=== PATIENT | female | born 1965 | race Caucasian/White ===

== ENCOUNTER → 2016-07-05 | Outpatient (REF) ==
[2016-07-05 16:45] LABS: THYROID STIMULATING HORMONE 2.52 uIU/mL (0.465-4.680)
== END ==
LOC: ZLAB.WCH 15:59
PROVIDERS: Internal Medicine Endocrinology, Diabetes & Metabolism
DX: Z01.89 Encounter for other specified special examinations (principal)

== ENCOUNTER → 2016-08-30 | Outpatient (CLI) | payer OTHER | LOC: MC.RAD 14:51 | DX: Z12.31 Encounter for screening mammogram for malignant neoplasm of breast (principal) ==

== ENCOUNTER → 2016-09-03 | Outpatient (REF) ==
[2016-09-03 20:06] LABS: THYROID STIMULATING HORMONE 1.1 uIU/mL (0.465-4.680)
== END ==
LOC: ZLAB.WCH 19:07
PROVIDERS: Internal Medicine Endocrinology, Diabetes & Metabolism
DX: Z01.89 Encounter for other specified special examinations (principal)

== ENCOUNTER → 2016-12-03 | Outpatient (REF) | LOC: ZLAB.WCH 18:08 | DX: Z01.89 Encounter for other specified special examinations (principal) ==

== ENCOUNTER → 2018-06-23 | Outpatient (CLI) | payer OTHER | LOC: MC.RAD 15:52 | DX: Z12.31 Encounter for screening mammogram for malignant neoplasm of breast (principal) ==

== ENCOUNTER → 2018-07-16 | Outpatient (REF) ==
[2018-07-16 17:29] LABS: TOTAL IRON BINDING CAPACITY 336 ug/dL (265-497)
[2018-07-16 17:54] LABS: FERRITIN 89 ng/mL (11-264)
[2018-07-16 18:28] LABS: IRON,SERUM 79 ug/dL (35-150)
== END ==
LOC: ZLAB.WCH 16:02
PROVIDERS: Internal Medicine
DX: Z01.89 Encounter for other specified special examinations (principal)

== ENCOUNTER → 2018-11-11 | Outpatient (CLI) | payer OTHER | LOC: MHCPAIN 14:55 | DX: G89.29 Other chronic pain (principal); M47.812 Spondylosis without myelopathy or radiculopathy, cervical region; R51 Headache; M54.81 Occipital neuralgia | CPT/HCPCS: G0463 ==

== ENCOUNTER → 2018-12-10 | Outpatient (CLI) | payer OTHER | LOC: MHCPAIN 12:55 | DX: M54.12 Radiculopathy, cervical region (principal); M47.812 Spondylosis without myelopathy or radiculopathy, cervical region ==

== ENCOUNTER → 2018-12-14 | Outpatient (CLI) | payer OTHER | LOC: MHCPAIN 09:15 | DX: G89.29 Other chronic pain (principal); R51 Headache; M47.812 Spondylosis without myelopathy or radiculopathy, cervical region | CPT/HCPCS: G0463 ==

== ENCOUNTER → 2018-12-24 | Outpatient (CLI) | payer OTHER | LOC: MHCPAIN 11:38 | DX: M54.12 Radiculopathy, cervical region (principal); M47.812 Spondylosis without myelopathy or radiculopathy, cervical region; R51 Headache ==

== ENCOUNTER → 2018-12-30 | Outpatient (CLI) | payer OTHER | LOC: MHCPAIN 08:50 | DX: G89.29 Other chronic pain (principal); M54.81 Occipital neuralgia; R51 Headache; M47.812 Spondylosis without myelopathy or radiculopathy, cervical region | CPT/HCPCS: G0463 ==

== ENCOUNTER → 2019-01-21 | Outpatient (CLI) | payer OTHER | LOC: MHCPAIN 14:40 | DX: M54.12 Radiculopathy, cervical region (principal); R51 Headache | CPT/HCPCS: J2250; J2405; J3010; J7030 ==

== ENCOUNTER → 2019-02-04 | Outpatient (CLI) | payer OTHER | LOC: COL.RAD 08:15 | DX: H91.8X1 Other specified hearing loss, right ear (principal) | CPT/HCPCS: A9585 ==

== ENCOUNTER → 2019-03-30 | Outpatient (CLI) | payer OTHER | LOC: MHCPAIN 15:03 | DX: M54.81 Occipital neuralgia (principal); R51 Headache | CPT/HCPCS: G0463 ==

== ENCOUNTER → 2020-09-04 | Outpatient (CLI) | payer OTHER | LOC: COL.RAD 14:58 | DX: R06.00 Dyspnea, unspecified (principal) ==

== ENCOUNTER → 2020-09-05 | Outpatient (CLI) | payer OTHER | LOC: COL.RAD 14:16 | DX: J01.90 Acute sinusitis, unspecified (principal) | CPT/HCPCS: Q9967 ==

== ENCOUNTER → 2021-02-22 | Outpatient (CLI) | payer OTHER | LOC: MC.RAD 17:00 | DX: Z12.31 Encounter for screening mammogram for malignant neoplasm of breast (principal) ==

== ENCOUNTER → 2022-02-26 | Outpatient (CLI) | payer OTHER | LOC: MC.RAD 10:17 | DX: Z12.31 Encounter for screening mammogram for malignant neoplasm of breast (principal) ==

== ENCOUNTER → 2023-06-05 | Outpatient (CLI) | payer OTHER | LOC: MC.RAD 11:08 | DX: Z12.31 Encounter for screening mammogram for malignant neoplasm of breast (principal) ==